=== PATIENT | male | born 1975 | race Asian ===

== ENCOUNTER 2018-04-30 11:50 | Outpatient (CLI) | payer BC | END 2018-04-30 20:44 | disposition home or self-care (01) | LOC: RAD 11:50 | DX: J40 Bronchitis, not specified as acute or chronic (principal) ==

== ENCOUNTER 2021-07-17 09:50 | Outpatient (CLI) | payer BC | END 2021-07-17 20:33 | disposition home or self-care (01) | LOC: US 09:50 | PROVIDERS: ATTEND Internal Medicine | DX: R10.9 Unspecified abdominal pain (principal) ==